=== PATIENT | female | born 1945 | race Caucasian/White ===

== ENCOUNTER 2017-11-14 15:41 | Emergency (ER) | payer MEDICARE, OTHER ==
[~2017-11-14] VITALS: Ht 160 cm; Wt 81.2 kg
[~2017-11-14 15:41] MED LIST: ACE500 PO; ACET-2031 PO; ALB17R INH; ALBU8.5H12 IH; ASPI-274 PO; ATOR20TA22 PO; BENA1TAB57 PO; CALC-649 PO; CHOL100062 PO; CINN500C12 PO; CIP500 PO; DEN60I SUBQ; DEXL60CA6 PO; DIA5 PO; DULO30CA35 PO; DULO60CA51 PO; EZET10TA41 PO; FEN145 PO; FEN75T TD; FENT-19 TD; FLUT16SP19 NS; FLUT16SP20 NS; GABA-549 PO; GING550C2 PO; ISOS30TA51 PO; MAG PO; MEC25 PO; MECL25TA34 PO; MEPE50TA29 PO; METF-1 PO; METF-410 PO; METF-420 PO; METO-233 PO; METO25TA91 PO; METXL50 PO; MULT-820 PO; NIT4 SL; OMEG300C PO; ONDA4TAB PO; OXYGENHOME INH; POLY119P24 PO; PRO25 PO; PROM12.556 PO; RABE20TA33 PO; RAM25 PO; ROS10 PO; TAM4 PO; TOP100 PO; TOPI-120 PO; TRAM-420 PO; UBID100C48 PO; VERA100C4 PO; VIT D PO; ZOL5 PO; [UNRECOGNIZED DRUG - CODE] PO; [UNRECOGNIZED DRUG - CODE] PO; [UNRECOGNIZED DRUG - OTHER] PO
--- NOTE | 2017-11-14 15:48 | ER Report ---
History and Physical Time Seen By MD: 15:28 (BINU STUBBS PA-C) HPI/ROS CHIEF COMPLAINT: Left 2nd finger laceration HISTORY OF PRESENT ILLNESS: She is a 72-year-old female accompanied by her , who presents the ED with complaint of left 2nd finger laceration. She states that she was sharpening a machine ii cutter for fabric when this slipped and hit her left finger. She states that she was unable to stop them bleeding. She states that she is able to move her finger with minimal pain. REVIEW OF SYSTEMS: Respiratory: No cough, no dyspnea. Cardiovascular: No chest pain, no palpitations. Gastrointestinal: No vomiting, no abdominal pain. Musculoskeletal: No back pain. Skin: See history of present illness. (BINU STUBBS PA-C) Allergies: Coded Allergies: bupropion (Verified Allergy, Severe, CHEST PAIN, GENERAL FATIGUE, 03/14/15) codeine (Verified Allergy, Severe, ANAPHYLAXIS, 03/14/15) sertraline (Verified Allergy, Severe, INCREASED BP AND PULSE, 03/14/15) erythromycin base (Verified Allergy, Intermediate, STOMACH PAIN, NAUSEA, ) estrogens, conjugated (Verified Allergy, Intermediate, severe inflammation rash, 03/14/15) This is for the Vaginal Cream hydrocodone (Verified Allergy, Intermediate, ITCHING, 03/14/15) hydromorphone (Verified Allergy, Intermediate, ITCHING, DIFF BREATHING, ) morphine (Verified Allergy, Intermediate, RASH, ITCHING, 03/14/15) oxycodone (Verified Allergy, Intermediate, ITCHING, 03/14/15) pentazocine (Verified Allergy, Intermediate, HALLUCINATIONS, 03/14/15) piroxicam (Verified Allergy, Intermediate, VESICULAR RASH, 03/14/15) sulindac (Verified Allergy, Intermediate, RASH, 03/14/15) phenylpropanolamine (Verified Allergy, Mild, NAUSEA, 03/14/15) Latex, Natural Rubber (Verified Adverse Reaction, Unknown, 08/04/16) Home Meds Reported Medications Ramipril (ALTACE) 5 Mg Capsule, 5 MG PO QDAY, CAPSULE 11/14/17 Niacin (NIACIN) 500 Mg Capsule.er, 500 MG PO QDAY 11/14/17 Fluticasone Prop 50 Mcg Ns (FLONASE 50 MCG NS) 16 Gm [place].susp, 1 SPRAY NS BID Y for PRN, BOT 03/14/15 Meclizine HCl (Motion-Time) 25 Mg Tab.chew, 25 MG PO PRN 03/14/15 Albuterol Sul Hfa 90 Mcg 8 Gm (VENTOLIN HFA 90 MCG 8 GM) 8.5 Gm Hfa.aer.ad, 2 PUFF IH Q4H Y for PRN 03/14/15 [place]-3 Fatty Acids (FISH OIL) 300 Mg Capsule, 300 MG PO, CAPSULE 03/14/15 Ubidecarenone (COQ-10) 100 Mg Capsule, 200 MG PO QDAY, CAPSULE 03/14/15 Acetaminophen (ACETAMINOPHEN) 325 Mg Tablet, 1300 MG PO BID, TAB 03/14/15 Denosumab (PROLIA) 60 Mg/1 Ml Injs, 60 MG SUBQ q6mos 03/14/15 Oxygen (OXYGEN) 2 L Inha, 2 L INH QHS, L 03/14/15 Cholecalciferol (Vitamin D3) (VITAMIN D) 10,000 Unit Capsule, 92600 UNIT PO 2XW , CAPSULE 03/14/15 Dexlansoprazole (DEXILANT) 60 Mg Cap.mp, 60 MG PO QAM 03/14/15 Metformin Hcl (METFORMIN HCL) 1,000 Mg Tablet, 1 TAB PO BID TAKE ONE TABLET BY MOUTH EVERY DAY 03/14/15 Gabapentin (GABAPENTIN) 300 Mg Capsule, 300 MG PO TID, CAPSULE 03/14/15 Duloxetine Hcl (CYMBALTA) 30 Mg Capsule., 30 MG PO QHS, #5 CAP TAKE 1 CAPSULE BY MOUTH EVERY DAY 03/14/15 Metoprolol Succinate (TOPROL XL) 50 Mg Tab.er.24h, 1 TAB PO QHS, TAB 03/14/15 Fenofibrate,Micronized (TRICOR) 145 Mg Tab, 145 MG PO QHS, #10 TAB TAKE 1 TABLET BY MOUTH DAILY 03/14/15 Ezetimibe (ZETIA) 10 Mg Tablet, 10 MG PO QHS 03/14/15 Atorvastatin Calcium (LIPITOR) 20 Mg Tablet, 1 TAB PO QHS, TAB TAKE ONE TABLET BY MOUTH ONCE A DAY AT BED TIME 03/14/15 Discontinued Reported Medications Meperidine Hcl (DEMEROL) 50 Mg Tablet, 50 MG PO Q4H Y for PAIN 08/11/16 Cinnamon Bark (CINNAMON) 500 Mg Capsule, 500 MG PO BID, CAPSULE 03/14/15 Nimco Root (Nimco Root) 550 Mg Capsule, 550 MG PO BID 03/14/15 Topiramate (TOPAMAX) 50 Mg Tablet, 50 MG PO QHS 03/14/15 Reviewed Nurses Notes: Yes Old Medical Records Reviewed: Yes (BINU STUBBS PA-C) Hx Smoking: No Smoking Status: Never Smoker Hx Alcohol Use: Yes (NURIA WANGP-) Constitutional Vital Sign - Last 24 Hours 11/14/17 15:46 Temp 98.8 Pulse 103 Resp 16 B/P (MAP) 168/96 Pulse Ox 95 O2 Delivery Room Air (BINU STUBBS PA-C) Physical Exam General Appearance: The patient is alert, has no immediate need for airway protection and no current signs of toxicity. She appears to be no acute distress. Respiratory: Chest is non tender, lungs are clear to auscultation. Cardiac: regular rate and rhythm Musculoskeletal: Neck: Neck is supple and non tender. Extremities have full range of motion and are non tender. Full range of motion of left 2nd finger. Radial pulses 2+ with normal capillary refill. Normal sensation. Skin: There is a 2 cm linear laceration of the distal left 2nd finger that stops at the nail border. Active bleeding is present. (BINU STUBBS PA-C) Medical Decision Making EKG/Imaging Imaging Left 2nd Finger Xrays: No acute fx or FB per radiology (BINU STUBBS PA-C) ED Course/Re-evaluation ED Course Procedure: Laceration repair. Verbal consent was obtained from the patient. The 2 cm linear laceration on the left 2nd finger distally was anesthetized with 1% lidocaine for digital block of the left 2nd finger.. The wound was scrubbed, draped and explored to its base with a gloved finger. There were no deep structures involved. No tendon injury was identified. The wound was repaired with 3 5-0 Prolene sutures in simple interrupted fashion. The wound repair was simple. The procedure was performed by myself. Bacitracin and bandage was applied and patient tolerated procedure well. Decision to Disposition Date: Nov 14, 2017 Decision to Disposition Time: 17:03 (BINU STUBBS PA-C) Depart Departure Latest Vital Signs Vital Signs Date Time Temp Pulse Resp B/P (MAP) Pulse Ox O2 Delivery O2 Flow Rate FiO2 11/14/17 15:46 98.8 103 16 168/96 95 Room Air (BINU STUBBS PA-C) Impression: Primary Impression: Laceration of left index finger Condition: Improved Disposition: HOME OR SELF-CARE Referrals: TEMI ALDRICH DO (PCP) Patient Instructions: Finger Laceration (ED) Additional Instructions: Monitor for signs and symptoms of infection including redness, swelling, discharge, fever. Follow-up with primary care provider in 2-3 days. If having any worsening or concerning symptoms may return to the emergency department. Problem Qualifiers Primary Impression: Laceration of left index finger Encounter type: initial encounter Damage to nail status: with damage Foreign body presence: without foreign body Qualified Codes: S61.311A - Laceration without foreign body of left index finger with damage to nail, initial encounter NURIA WANG ALUMNI RELATIONS MANAGER-BC Nov 14, 2017 15:48 BINU STUBBS PA-C Nov 14, 2017 15:57
[2017-11-14] MEDS ORDERED: NIAC500C12 PO (16:02)
[2017-11-14] MEDS ORDERED: RAMI5CAP PO (16:02)
--- NOTE | 2017-11-14 16:25 | RADIOLOGY IMAGING REPORT ---
FACILITY: [facility] [place] PATIENT NAME: Denisa Naranjo : 1945 MR: [id number] V: [id number] EXAM DATE: ORDERING PHYSICIAN: BINU STUBBS TECHNOLOGIST: Location: [facility] Patient: Denisa Naranjo : 1945 Visit/Account:[id number] Date of Sevice: 11/14/2017 Examination: 3 views left index finger. Comparison: None. History: Index finger laceration. Findings: Left index finger and visualized osseous structures of the hand are intact with no fracture or acute malalignment. Mild degenerative change throughout the visualized interphalangeal and metaca rpophalangeal joints. No acute soft tissue normality. No radiopaque foreign body. IMPRESSION: 1. No left index finger fracture or malalignment. 2. No radiopaque foreign body. Report Dictated By: Mayur Childs MD at 11/14/2017 4:19 PM Report E-Signed By: Mayur Childs MD at 11/14/2017 4:21 PM WSN:[id number]
[2017-11-14 17:00] VITALS: BP 148/84
[2017-11-14] MEDS ORDERED: BACITRACIN OINT 0.9 GM PKT TP ONE (17:00)
--- NOTE | 2017-11-29 08:35 | ER Report ---
History and Physical Time Seen By MD: 15:28 (BINU STUBBS PA-C) HPI/ROS CHIEF COMPLAINT: Left 2nd finger laceration HISTORY OF PRESENT ILLNESS: She is a 72-year-old female accompanied by her , who presents the ED with complaint of left 2nd finger laceration. She states that she was sharpening a jamb cutter for fabric when this slipped and hit her left finger. She states that she was unable to stop them bleeding. She states that she is able to move her finger with minimal pain. REVIEW OF SYSTEMS: Respiratory: No cough, no dyspnea. Cardiovascular: No chest pain, no palpitations. Gastrointestinal: No vomiting, no abdominal pain. Musculoskeletal: No back pain. Skin: See history of present illness. (BINU STUBBS PA-C) Allergies: Coded Allergies: bupropion (Verified Allergy, Severe, CHEST PAIN, GENERAL FATIGUE, 03/14/15) codeine (Verified Allergy, Severe, ANAPHYLAXIS, 03/14/15) sertraline (Verified Allergy, Severe, INCREASED BP AND PULSE, 03/14/15) erythromycin base (Verified Allergy, Intermediate, STOMACH PAIN, NAUSEA, ) estrogens, conjugated (Verified Allergy, Intermediate, severe inflammation rash, 03/14/15) This is for the Vaginal Cream hydrocodone (Verified Allergy, Intermediate, ITCHING, 03/14/15) hydromorphone (Verified Allergy, Intermediate, ITCHING, DIFF BREATHING, ) morphine (Verified Allergy, Intermediate, RASH, ITCHING, 03/14/15) oxycodone (Verified Allergy, Intermediate, ITCHING, 03/14/15) pentazocine (Verified Allergy, Intermediate, HALLUCINATIONS, 03/14/15) piroxicam (Verified Allergy, Intermediate, VESICULAR RASH, 03/14/15) sulindac (Verified Allergy, Intermediate, RASH, 03/14/15) phenylpropanolamine (Verified Allergy, Mild, NAUSEA, 03/14/15) Latex, Natural Rubber (Verified Adverse Reaction, Unknown, 08/04/16) Home Meds Reported Medications Ramipril (ALTACE) 5 Mg Capsule, 5 MG PO QDAY, CAPSULE 11/14/17 Niacin (NIACIN) 500 Mg Capsule.er, 500 MG PO QDAY 11/14/17 Fluticasone Prop 50 Mcg Ns (FLONASE 50 MCG NS) 16 Gm [place].susp, 1 SPRAY NS BID Y for PRN, BOT 03/14/15 Meclizine HCl (Motion-Time) 25 Mg Tab.chew, 25 MG PO PRN 03/14/15 Albuterol Sul Hfa 90 Mcg 8 Gm (VENTOLIN HFA 90 MCG 8 GM) 8.5 Gm Hfa.aer.ad, 2 PUFF IH Q4H Y for PRN 03/14/15 [place]-3 Fatty Acids (FISH OIL) 300 Mg Capsule, 300 MG PO, CAPSULE 03/14/15 Ubidecarenone (COQ-10) 100 Mg Capsule, 200 MG PO QDAY, CAPSULE 03/14/15 Acetaminophen (ACETAMINOPHEN) 325 Mg Tablet, 1300 MG PO BID, TAB 03/14/15 Denosumab (PROLIA) 60 Mg/1 Ml Injs, 60 MG SUBQ q6mos 03/14/15 Oxygen (OXYGEN) 2 L Inha, 2 L INH QHS, L 03/14/15 Cholecalciferol (Vitamin D3) (VITAMIN D) 10,000 Unit Capsule, 42751 UNIT PO 2XW , CAPSULE 03/14/15 Dexlansoprazole (DEXILANT) 60 Mg Cap.mp, 60 MG PO QAM 03/14/15 Metformin Hcl (METFORMIN HCL) 1,000 Mg Tablet, 1 TAB PO BID TAKE ONE TABLET BY MOUTH EVERY DAY 03/14/15 Gabapentin (GABAPENTIN) 300 Mg Capsule, 300 MG PO TID, CAPSULE 03/14/15 Duloxetine Hcl (CYMBALTA) 30 Mg Capsule., 30 MG PO QHS, #5 CAP TAKE 1 CAPSULE BY MOUTH EVERY DAY 03/14/15 Metoprolol Succinate (TOPROL XL) 50 Mg Tab.er.24h, 1 TAB PO QHS, TAB 03/14/15 Fenofibrate,Micronized (TRICOR) 145 Mg Tab, 145 MG PO QHS, #10 TAB TAKE 1 TABLET BY MOUTH DAILY 03/14/15 Ezetimibe (ZETIA) 10 Mg Tablet, 10 MG PO QHS 03/14/15 Atorvastatin Calcium (LIPITOR) 20 Mg Tablet, 1 TAB PO QHS, TAB TAKE ONE TABLET BY MOUTH ONCE A DAY AT BED TIME 03/14/15 Discontinued Reported Medications Meperidine Hcl (DEMEROL) 50 Mg Tablet, 50 MG PO Q4H Y for PAIN 08/11/16 Cinnamon Bark (CINNAMON) 500 Mg Capsule, 500 MG PO BID, CAPSULE 03/14/15 Nimco Root (Nimco Root) 550 Mg Capsule, 550 MG PO BID 03/14/15 Topiramate (TOPAMAX) 50 Mg Tablet, 50 MG PO QHS 03/14/15 Reviewed Nurses Notes: Yes Old Medical Records Reviewed: Yes (BINU STUBBS PA-C) Hx Smoking: No Smoking Status: Never Smoker Hx Alcohol Use: Yes (NURIA WANGP-) Constitutional Vital Sign - Last 24 Hours 11/14/17 15:46 Temp 98.8 Pulse 103 Resp 16 B/P (MAP) 168/96 Pulse Ox 95 O2 Delivery Room Air (BINU STUBBS PA-C) Physical Exam General Appearance: The patient is alert, has no immediate need for airway protection and no current signs of toxicity. She appears to be no acute distress. Respiratory: Chest is non tender, lungs are clear to auscultation. Cardiac: regular rate and rhythm Musculoskeletal: Neck: Neck is supple and non tender. Extremities have full range of motion and are non tender. Full range of motion of left 2nd finger. Radial pulses 2+ with normal capillary refill. Normal sensation. Skin: There is a 2 cm linear laceration of the distal left 2nd finger that stops at the nail border. Active bleeding is present. (BINU STUBBS PA-C) Medical Decision Making EKG/Imaging Imaging Left 2nd Finger Xrays: No acute fx or FB per radiology (BINU STUBBS PA-C) ED Course/Re-evaluation ED Course Procedure: Laceration repair. Verbal consent was obtained from the patient. The 2 cm linear laceration on the left 2nd finger distally was anesthetized with 1% lidocaine for digital block of the left 2nd finger.. The wound was scrubbed, draped and explored to its base with a gloved finger. There were no deep structures involved. No tendon injury was identified. The wound was repaired with 3 5-0 Prolene sutures in simple interrupted fashion. The wound repair was simple. The procedure was performed by myself. Bacitracin and bandage was applied and patient tolerated procedure well. Decision to Disposition Date: Nov 14, 2017 Decision to Disposition Time: 17:03 (BINU STUBBS PA-C) Depart Departure Latest Vital Signs Vital Signs Date Time Temp Pulse Resp B/P (MAP) Pulse Ox O2 Delivery O2 Flow Rate FiO2 11/14/17 15:46 98.8 103 16 168/96 95 Room Air (BINU STUBBS PA-C) Impression: Primary Impression: Laceration of left index finger Condition: Improved Disposition: HOME OR SELF-CARE Referrals: TEMI ALDRICH DO (PCP) Patient Instructions: Finger Laceration (ED) Additional Instructions: Monitor for signs and symptoms of infection including redness, swelling, discharge, fever. Follow-up with primary care provider in 2-3 days. If having any worsening or concerning symptoms may return to the emergency department. Problem Qualifiers Primary Impression: Laceration of left index finger Encounter type: initial encounter Damage to nail status: with damage Foreign body presence: without foreign body Qualified Codes: S61.311A - Laceration without foreign body of left index finger with damage to nail, initial encounter NURIA WANGP-HERBERT Nov 14, 2017 15:48 BINU STUBBS PA-C Nov 14, 2017 15:57 <Electronically signed by BINU STUBBS PA-C> D/ 1705 D/T: D/T: 1548 1548 ROBYN/CROW NINA
== END 2017-11-14 17:10 | disposition home or self-care (01) ==
LOC: ER 16:00
DX: S61.211A Laceration without foreign body of left index finger without damage to nail, initial encounter (principal); W26.8XXA Contact with other sharp object(s), not elsewhere classified, initial encounter
CPT/HCPCS: 99283; C9399

== ENCOUNTER → 2018-02-08 | Outpatient (CLI) | payer MEDICARE, OTHER ==
[~2018-02-08] MED LIST changes: +NIAC500C12 PO; +RAMI5CAP PO
== END ==
LOC: LAB 08:44
PROVIDERS: ATTEND Family Medicine
DX: I10 Essential (primary) hypertension (principal); E11.65 Type 2 diabetes mellitus with hyperglycemia; E78.5 Hyperlipidemia, unspecified
CPT/HCPCS: 36415; 82040; 82043; 82247; 82310; 82374; 82435; 82465; 82565; 82947; 83036; 83690; 83718; 84075; 84132; 84155; 84295; 84450; 84460; 84478; 84520

== ENCOUNTER → 2018-02-21 | Outpatient (CLI) | payer MEDICARE, OTHER ==
--- NOTE | 2018-02-21 09:57 | RADIOLOGY IMAGING REPORT ---
[place] [facility] [place] Denisa Naranjo : 1945 MR: [id number] V: [id number] EXAM DATE: ORDERING PHYSICIAN: TEMI ALDRICH TECHNOLOGIST: Location: [facility] [place] Patient: Denisa Naranjo : 1945 Visit/Account:[id number] Date of Sevice: 02/21/2018 CERVICAL SPINE 2 OR 3 VIEW HISTORY: Neck and shoulder pain, osteoporosis COMPARISON: None. FINDINGS: Three views of the cervical spine are submitted. Prevertebral soft tissues are within normal limits. There is mild degenerative disc narrowing throug hout with more moderate narrowing at C6-C7 and C7-T1. Endplate spurring is seen involving the C5, C6 , C7 and T1 vertebra. Increased endplate sclerosis is seen at the C6-C7 and C7-T1. Facets align adrián ropriately. Mildly increased facet sclerosis is seen over the lower cervical spine. Odontoid view i s obscured by densities. IMPRESSION: 1. Mild to moderate multilevel spondylotic changes, most significant at the level of C6-C7 and C7-T1 . No acute osseous finding. Report Dictated By: Andry Barker MD at 02/21/2018 9:50 AM Report E-Signed By: Andry Barker MD at 02/21/2018 9:52 AM WSN:[id number]
--- NOTE | 2018-02-21 10:04 | RADIOLOGY IMAGING REPORT ---
[place] [facility] [place] NAME: Denisa Naranjo : 1945 MR: [id number] V: [id number] EXAM DATE: ORDERING PHYSICIAN: TEMI ALDRICH TECHNOLOGIST: Location: [facility] Patient: Denisa Naranjo : 1945 Visit/Account:[id number] Date of Sevice: 02/21/2018 DEXA Scan Clinical history: Neck and shoulder pain, osteoporosis. Comparison: DEXA scan from 12/29/2013. HIP: Bone mineral density (BMD) measured in the Left total hip region correlates with a Z-score 0.9 and a T-score of -0.3 which is Normal as defined by the World Health Organization. The corresponding risk of fracture in the hip is Not increased compared with a young adult reference population. This total hip value has increased by 4.4 % since the prior study. More than 5% change is considered significan t. T score left femoral neck -0.8 Bone mineral density (BMD) measured in the Femoral Neck region measures 0.922 g/cm2. FOREARM: The bone mineral density (BMD) measured in the ULTRADISTAL right forearm, where trabecular bone predo minates, correlates with a Z-score 0.7 and a T-score of -1.2 which is osteopenia as defined by the Wo rld Health Organization. The corresponding risk of fracture in the distal forearm is 2-3 times incre ased compared with a young adult reference population. The bone mineral density (BMD) in the MIDSHAFT of the forearm, where cortical bone predominates, felton elates with a Z-score 0.3 and a T-score of -1.6 which is osteopenia as defined by the World Health Or ganization. The corresponding risk of fracture in the midshaft of the forearm is 3-4 times increased compared with a young adult reference population. IMPRESSION: 1. Left Hip: Normal. There has been 4.4% increase in the total hip bone mineral density since the p revious exam. 2. Femoral Neck: Bone Mineral Density is 0.922 g/cm2 3. Right Forearm: Osteopenia. The next DEXA scan of this patient should include the following sites: L1-L4 and the right forearm. FRAX? WHO Fracture Risk Assessment Tool link: <http://www.shef.ac.uk/FRAX/tool.jsp?locationValue=9> PLEASE NOTE: 1) The World Health Organization defines low BMD as follows: T-score Normal > -1 Osteopenia < -1 and > -2.5 Osteoporosis < -2.5 without fractures Established osteoporosis < -2.5 with fractures 2) In general, you may wish to consider: Diagnosis Treatment Follow-up DEXA Normal BMD Prevention 2-3 years Osteopenia Prevention/therapy 1-2 years Osteoporosis Therapy Yearly 3) Fracture risk estimated from the T-score is more accurate for vertebral fractures (often spontane ous) than for hip fractures. . Report Dictated By: Sanam Nicholson MD at 02/21/2018 9:51 AM Report E-Signed By: Sanam Nicholson MD at 02/21/2018 9:59 AM WSN:[email or web address]
== END ==
LOC: RAD 03:26
PROVIDERS: ATTEND Family Medicine
DX: Z12.31 Encounter for screening mammogram for malignant neoplasm of breast (principal); Z13.820 Encounter for screening for osteoporosis; M85.80 Other specified disorders of bone density and structure, unspecified site; M47.892 Other spondylosis, cervical region
CPT/HCPCS: 72040; 77080

== ENCOUNTER → 2018-03-07 | Outpatient (CLI) | payer MEDICARE, OTHER ==
[~2018-03-07] MED LIST changes: +DENOSUMAB 60 MG/1 ML SYR SUBQ ONE; -METF-410 PO; +METF-411 PO; -METF-420 PO; +METF-421 PO
[2018-03-07 11:47] VITALS: BP 129/80
== END ==
LOC: SPU 08:43
PROVIDERS: ATTEND Family Medicine
DX: M81.0 Age-related osteoporosis without current pathological fracture (principal)
CPT/HCPCS: 96372; J0897

== ENCOUNTER → 2018-06-02 | Outpatient (CLI) | payer MEDICARE, OTHER ==
[~2018-06-02] MED LIST changes: +BARIUM SULFATE 176 GM BTL PO ONE; +BARIUM SULFATE 340 GM POWD ONE; -DENOSUMAB 60 MG/1 ML SYR SUBQ ONE
--- NOTE | 2018-06-02 10:08 | RADIOLOGY IMAGING REPORT ---
[place] [facility] [place] NAME: Denisa Naranjo : 1945 MR: [id number] V: [id number] EXAM DATE: ORDERING PHYSICIAN: TEMI ALDRICH TECHNOLOGIST: Location: [facility] Patient: Denisa Naranjo : 1945 Visit/Account:[id number] Date of Sevice: 06/02/2018 Exam type: CHEST PA AND LAT History: History of laparoscopic cholecystectomy, cough, GERD, hoarseness and morning Comparison: July 15, 2016. Findings: The lungs are free of acute effusions, infiltrates or edema. No evidence of a pneumothorax or pneumo mediastinum. Cardiac silhouette is normal in size. The trachea is in midline. There is an S-shaped scoliosis of the thoracal lumbar spine with moderate spondylotic changes. Surgical clips present ri ght upper quadrant of abdomen IMPRESSION: 1. No acute cardiac pulmonary process is seen Report Dictated By: Sanam Nicholson MD at 06/02/2018 9:55 AM Report E-Signed By: Sanam Nicholson MD at 06/02/2018 10:03 AM WSN:[id number]
--- NOTE | 2018-06-02 15:21 | RADIOLOGY IMAGING REPORT ---
FACILITY: [facility] PATIENT NAME: Denisa Naranjo : 1945 MR: [id number] V: [id number] EXAM DATE: ORDERING PHYSICIAN: TEMI ALDRICH TECHNOLOGIST: Location: [facility] [place] Patient: Denisa Naranjo : 1945 Visit/Account:[id number] Date of Sevice: 06/02/2018 Exam type: UPPER GI SERIES W/O AIR History: History of laparoscopic cholecystectomy, cough, GERD, worse in the mornings Comparison: None. Findings: Double contrast upper GI series was performed with thick and thin barium and air contrast. Hiatal he rnia is not identified. There is no significant narrowing within the esophagus or mucosal erosion al though there was a moderate amount of gastroesophageal reflux observed. No abnormality of the stomac h duodenal bulb or duodenal C-loop was seen. The fluoroscopy dose area product was 1139.50 micro-Gra y per meter squared IMPRESSION: 1. Moderate amount of gastroesophageal reflux although no evidence of a hiatal hernia esophageal malika rowing or mucosal erosion. The remainder the upper GI series was unremarkable Report Dictated By: Sanam Nicholson MD at 06/02/2018 3:08 PM Report E-Signed By: Sanam Nicholson MD at 06/02/2018 3:16 PM WSN:[email or web address]
== END ==
LOC: RAD 02:27
PROVIDERS: ATTEND Family Medicine
DX: K21.9 Gastro-esophageal reflux disease without esophagitis (principal); M41.85 Other forms of scoliosis, thoracolumbar region; M47.895 Other spondylosis, thoracolumbar region; Z98.890 Other specified postprocedural states
CPT/HCPCS: 71046; 74247

== ENCOUNTER → 2018-07-28 | Outpatient (CLI) | payer MEDICARE, OTHER ==
[~2018-07-28] MED LIST changes: -BARIUM SULFATE 176 GM BTL PO ONE; -BARIUM SULFATE 340 GM POWD ONE; -METF-411 PO; -METF-421 PO; +METF-450 PO; +METF-452 PO
--- NOTE | 2018-07-29 08:13 | RADIOLOGY IMAGING REPORT ---
FACILITY: [facility] PATIENT NAME: YIMI GARCIA : [id number] MR: [id number] V: [id number] EXAM DATE: [id number] ORDERING PHYSICIAN: TEMI ALDRICH TECHNOLOGIST: Yeni Hurt PROCEDURE:BILATERAL DIGITAL SCREENING MAMMOGRAM WITH CAD ASSISTED INTERPRETATION & 3D TOMOSYNTHESIS COMPARISON:Prior mammograms 07/27/17, 07/28/16, 07/24/16, 08/06/15, 07/26/15, 07/25/14. INDICATIONS:screening FINDINGS: A small amount of fibroglandular tissue is seen throughout the breasts. The parenchymal pattern has remained stable allowing for difference in mammographic technique & patient positioning. There is no evidence of malignant appearing mass, malignant appearing calcifications or other secondary sign of malignancy in either breast. DIAGNOSTIC CATEGORY 1--NEGATIVE. RECOMMENDATIONS: ROUTINE MAMMOGRAM AND CLINICAL EVALUATION. IMPRESSION: BIRADS 1: Negative. No significant abnormality is seen. Dictated by: Sanam Nicholson M.D. on 07/28/2018 at 15:36 Transcribed by: [email or web address] on 07/28/2018 at 16:01 Approved by: Sanam Nicholson M.D. on 07/29/2018 at 8:12 [facility]
== END ==
LOC: MAMO 01:11
PROVIDERS: ATTEND Family Medicine
DX: Z12.31 Encounter for screening mammogram for malignant neoplasm of breast (principal)
CPT/HCPCS: 77063; 77067

== ENCOUNTER 2018-08-08 08:15 | Outpatient (RCR) | payer MEDICARE, OTHER ==
--- NOTE | 2018-07-06 14:03 | PT INITIAL EVALUATION ---
MEDICAL DIAGNOSIS: R shoulder bursitis and cuff tendinitis TREATMENT DIAGNOSIS: Same, R shoulder pain DATE OF ONSET: 05/01/18 SUBJECTIVE: Denisa Sena presents to PT for a flare of her chronic R shoulder bursitis and cuff tendinitis from extra yard work this summer. She relates her Kenalog injection on 05/23/18 helped resolve her glenohumeral joint pain but her muscle and bursa pain are strong, disrupting sleep at night and making lifting, carrying anything light painful. Quick DASH 50% impairment. Pain location is R anterior and lateral shoulder, biceps to the elbow and described as sharp grab, ache, burning. Pain scale is 8 on a ten point pain scale. Pain is worse with raising arm >90 degrees flexion or abduction, trying to sleep, sewing, quilting, driving, painting fences, doing heavy house work and better with nothing reduces the pain. REHAB PROBLEM LIST: Increased Pain Decreased ROM Decreased Strength Decreased Function Decreased Mobility PREVIOUS MEDICAL HISTORY: R medium rotator cuff repair, R biceps tenotomy, CHI, lumbar fusion with L L4 ankle weakness, DM, O2 at night, L ear equilibrium problems, B cubital and carpal tunnel pain. OCCUPATION: Retired RN. OBJECTIVE: Posture: Protracted R shoulder ROM: A/PROM R shoulder full/full in all directions, impingement zone pain. Strength: R supraspinatus 3+/5, pain limited, biceps 4-/5, pain limited, ER 4+/5, pain free, IR 5/5. Palpation: Painful R biceps muscle, supraspinatus tendon, deltoid, LS. Myofascial tightness is present throughout the R shoulder complex. Special Tests: Negative crank, scour, AC tests. Tight pecs, LS, serratus anterior, bound superior scapular angle. Cervical compression, disc loading don't recreate shoulder pain. Hypomobile lower cervical and upper thoracic vertebral motion. Gait: Normal scapulohumeral rhythm. ASSESSMENT: Denisa Naranjo presents with muscle imbalance, inflammation, pain, tightness affecting R shoulder function. She did well with manual therapy and HEP muscle balancing instruction today with slight reduction of R shoulder pain. Short Term Goals 4 weeks: Denisa sleeps without awakening due to R shoulder pain. 6 weeks: Denisa carries two sacks of groceries in her R arm, puts dishes away to high shelves and does heavy house work with R shoulder pain 3-02/08. Patient's Goals Sleep without shoulder pain, reduce R shoulder pain with house ADL's and sewing. PLAN: Patient to be seen for Manual Therapy/STM/MET Strengthening/condition Ice/Heat Spinal Stabilization Stretching Iontophoresis Neuromuscular Re-ed Electrical Stim Gait Trg/Balance Trg Home Exercise Program 2x/Week for 6 Weeks Thank you for this referral. If you have any questions, comments, or concerns about this report or plan, please contact me at . [facility]
--- NOTE | 2018-08-08 09:34 | PT PLAN OF CARE ---
Physician: Dr. Joshua Thurston Patient is being seen: 2x/week Therapist: Omayra Mcbride, PT Medical Diagnosis: R shoulder bursitis and cuff tendinitis Treatment Diagnosis: Same, R shoulder pain Date of Onset: 05/01/18 Date of Initial Evaluation: 07/06/18 Date patient was last seen: 08/08/18 Number of treatments: 10 Number of cancellations/No shows: 0 INTERVENTIONS: ROM/Stretching, Strengthening and Muscle Balancing, E-stim, Manual Therapy, Ice/Heat, Home Exercise Program GOALS: 4 weeks: Denisa sleeps without awakening due to R shoulder pain. met 6 weeks: Denisa carries two sacks of groceries in her R arm, puts dishes away to high shelves and does heavy house work with R shoulder pain 3-4/10. all met PATIENT'S GOAL: Sleep without shoulder pain, reduce R shoulder pain with house ADL's and sewing. all met Patient Compliance: Excellent Prognosis: Excellent Reasons for discontinuing therapy: S: Denisa relates her burning sharp ache in the biceps is resolved, she's sleeping, doing heavy housework and sewing without R shoulder pain. Lifting a sack of groceries to the counter creates R shoulder pain 2/10. Posture: Even shoulders. ROM: A/PROM R shoulder WNL/WNL all directions. Strength: R supraspinatus 4+/5, , biceps 4-/5, pain limited, ER and IR 5/5. Palpation: Tender R biceps muscle. Mobility: Normal shoulder joints mobility, flexibility. A?P: Denisa Naranjo did well with therapeutic exercise, manual therapy and modalities to resolve her R shoulder pain. I'll DC PT. Thank you. MAICO
== END 2018-08-08 15:38 | disposition home or self-care (01) ==
LOC: PT 08:15
PROVIDERS: ATTEND Orthopaedic Surgery
DX: M75.51 Bursitis of right shoulder (principal); M75.101 Unspecified rotator cuff tear or rupture of right shoulder, not specified as traumatic; Z98.1 Arthrodesis status; E11.9 Type 2 diabetes mellitus without complications; Z99.81 Dependence on supplemental oxygen
CPT/HCPCS: 97010; 97110; 97140; 97162; G0283

== ENCOUNTER → 2018-09-01 | Outpatient (CLI) | payer MEDICARE, OTHER ==
[2018-09-01 08:56] LABS: LDL CHOLESTEROL 34 mg/dl
== END ==
LOC: LAB 08:06
PROVIDERS: ATTEND Family Medicine
DX: E78.5 Hyperlipidemia, unspecified (principal); E11.65 Type 2 diabetes mellitus with hyperglycemia; I10 Essential (primary) hypertension
CPT/HCPCS: 36415; 82040; 82043; 82247; 82310; 82374; 82435; 82465; 82565; 82947; 83036; 83690; 83718; 84075; 84132; 84155; 84295; 84450; 84460; 84478; 84520

== ENCOUNTER → 2018-09-07 | Outpatient (CLI) | payer MEDICARE, OTHER ==
[~2018-09-07] MED LIST changes: +DENOSUMAB 60 MG/1 ML SYR SUBQ ONE
[2018-09-07 08:58] VITALS: BP 126/70
== END ==
LOC: SPU 06:56
PROVIDERS: ATTEND Family Medicine
DX: M81.0 Age-related osteoporosis without current pathological fracture (principal)
CPT/HCPCS: 96372; J0897

== ENCOUNTER → 2018-10-17 | Outpatient (CLI) | payer MEDICARE, OTHER ==
[~2018-10-17] MED LIST changes: -DENOSUMAB 60 MG/1 ML SYR SUBQ ONE
--- NOTE | 2018-10-17 16:13 | RADIOLOGY IMAGING REPORT ---
FACILITY: [facility] [place] PATIENT NAME: Denisa Naranjo : 1945 MR: [id number] V: [id number] EXAM DATE: ORDERING PHYSICIAN: TEMI ALDRICH TECHNOLOGIST: [place] [facility] [place] N[place] : 1945 Visit/Account:[id number] Date of Sevice: 10/17/2018 KIDNEYS EXAMINATION: Renal ultrasound. History: Abnormal urinalysis, history of kidney stones COMPARISON STUDIES: June 18, 2015 FINDINGS: Kidneys: Right kidney- 11.2 x 5 x 7.4 cm Left kidney- 11.2 x 5.8 x 4 point for cm Uniform and symmetric blood flow in each kidney by Doppler ultrasound. Hydronephrosis: none There is a 2.2 cm cyst projecting from the lower pole the right kidney Resistive index on the right 0.75 and on the left 0.74 Bladder: Prevoid volume 306 mL. Postvoid residual zero. Bilateral ureteral jets are present Abdominal aorta and IVC: Aorta and IVC are patent by Doppler ultrasound. IMPRESSION: 2.2 cm cyst projects from the lower pole the right kidney Report Dictated By: Sanam Nicholson MD at 10/17/2018 4:05 PM Report E-Signed By: Sanam Nicholson MD at 10/17/2018 4:07 PM WSN:EMILY
== END ==
LOC: US 02:16
PROVIDERS: ATTEND Family Medicine
DX: R82.90 Unspecified abnormal findings in urine (principal); N28.1 Cyst of kidney, acquired
CPT/HCPCS: 76705

== ENCOUNTER → 2019-03-08 | Outpatient (CLI) | payer MEDICARE, OTHER ==
[2019-03-08 10:12] LABS: LDL CHOLESTEROL 18 mg/dl
== END ==
LOC: LAB 08:55
PROVIDERS: ATTEND Family Medicine
DX: I10 Essential (primary) hypertension (principal); E78.5 Hyperlipidemia, unspecified; E11.65 Type 2 diabetes mellitus with hyperglycemia; E55.9 Vitamin D deficiency, unspecified
CPT/HCPCS: 36415; 82040; 82043; 82247; 82306; 82310; 82374; 82435; 82465; 82565; 82947; 83036; 83718; 84075; 84132; 84155; 84295; 84450; 84460; 84478; 84520